=== PATIENT | male | born 1975 | race Caucasian/White ===

== ENCOUNTER → 2018-06-08 | Outpatient (CLI) | payer BC ==
--- NOTE | 2018-06-08 16:31 | REP ---
MAXILLOFACIAL CT WITHOUT CONTRAST: HISTORY: Chronic maxillary sinusitis. The patient is status-post partial left uncinectomy and left ethmoidectomy. Minimal mucosal thickening is present in the ethmoid and left maxillary sinuses. The remaining sinuses are clear. The right osteomeatal unit is patent. The middle and inferior nasal turbinates are partially paradoxical. There is minimal deviation of the nasal septum to the right. The cribriform plate, medial mcclelland of the orbits and optic canals are intact. The carotid canals form a segment of the posterolateral mcclelland of the sphenoid sinus. The sphenoid sinus septum inserts into the left internal carotid canal wall. A small soft tissue density is present in the left nasal passage lateral to and contiguous with the left middle nasal turbinate. This may represent a polyp. IMPRESSION:1. Postoperative change as described above. 2. Sinus mucosal thickening as described above. 3. There is a small soft tissue density in the left nasal passage that may represent a polyp. Electronically Signed by Loco Sanchez MD 06/08/2018 04:40 P
== END ==
LOC: M RAD 14:46
PROVIDERS: ATTEND Otolaryngology
DX: J32.0 Chronic maxillary sinusitis (principal); J34.9 Unspecified disorder of nose and nasal sinuses

== ENCOUNTER 2019-03-02 08:39 | Day surgery (SDC) | payer BC ==
[~2019-03-02] VITALS: Ht 193 cm; Wt 88.9 kg
[2019-03-02] MEDS ORDERED: PROPOFOL 200 MG/20 ML VIAL As Ordered ONE (09:59)
[2019-03-02] MEDS ORDERED: LIDOCAINE 2% INJ 100 MG/5 ML SDV (FOR ANES.) As Ordered ONE (09:59)
[2019-03-02] MEDS ORDERED: ROCURONIUM BROMIDE 50 MG/5 ML VIAL As Ordered ONE (09:59)
[2019-03-02] MEDS ORDERED: fentaNYL 250 MCG/5 ML INJECTION (J3010) As Ordered ONE (10:00)
[2019-03-02] MEDS ORDERED: MIDAZOLAM INJ 2 MG/2 ML VIAL (J2250) As Ordered ONE (10:00)
[2019-03-02] MEDS ORDERED: dexameTHASONE 4 MG/ML 1ML VIAL (J1100) As Ordered ONE (10:03)
[2019-03-02] MEDS ORDERED: METHYLENE BLUE 0.5% (5MG/ML) 10 ML AMP (PROVAYBLUE)(Q9968 PER 1MG) As Ordered ONE (10:04)
[2019-03-02] MEDS ORDERED: OXYMETAZOLINE NASAL SPRAY (AFRIN) As Ordered ONE (10:05)
[2019-03-02] MEDS ORDERED: LIDOCAINE W/EPINEPHRINE 1% 20ML VIAL As Ordered ONE (10:05)
[2019-03-02] MEDS ORDERED: GLYCOPYRROLATE INJ 0.2 MG/ML 2 ML VIAL As Ordered ONE (10:42)
[2019-03-02] MEDS ORDERED: ESMOLOL INJ 100MG/10ML VIAL As Ordered ONE (10:47)
[2019-03-02] MEDS ORDERED: LABETALOL HCL 100 MG/20 ML VIAL As Ordered ONE (11:01)
[2019-03-02] MEDS ORDERED: SUGAMMADEX SODIUM 500 MG/5 ML VIAL (BRIDION) As Ordered ONE (11:04)
[2019-03-02] MEDS ORDERED: ACETAMINOPHEN 1000MG 100ML IV BTL (OFIRMEV) (J0131 PER 10MG) As Ordered ONE (11:05)
[2019-03-02] MEDS ORDERED: ONDANSETRON 4MG/2ML VIAL (J2405) As Ordered ONE (11:05)
[2019-03-02] MEDS ORDERED: IBUPROFEN 600 MG TAB As Ordered ONE (14:17)
[2019-03-02] MEDS ORDERED: IBUPROFEN 600 MG TAB PO ONE (14:30)
[2019-03-02 14:55] VITALS: BP 147/98
--- NOTE | 2019-03-03 00:25 | RO ---
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 OPERATION PERFORMED: Coblation ablation of laryngeal papillomas with biopsies under micro suspension laryngoscopy. SURGEON: Drake Hernandez Jr., MD WINDOW SHADE CUTTER: ANESTHESIA: General via endotracheal tubes. PROCEDURE IN DETAIL: With the patient induced and intubated, prepped and draped in the usual fashion, the bed was turned 90 degrees. Then, initially the Hailee was placed, which was difficult to place in proper position. There were some epiglottic laryngeal surface papillomas that were coblated with the larger laryngeal Coblation wand with a setting of 7 Coblate and 3 coag. However, sufficient view of the larynx could not be obtained with this. Therefore, switch to Dedo scope was placed. The patient was then placed in micro suspension. There was blood from the endotracheal tube going through the laryngeal papillomas; this was suctioned. He had a fair amount of secretions. We asked the petrography teacher to give him Robinul, which he did. The patient also previously obtained 8 mg of Decadron. The patient then underwent placement of the Dedo scope such that attempts to identify the anterior commissure could be done. This could not be seen at all due to the significant anterior placement of the larynx plus the patient's papillomatosis. Initially we put him into suspension and could see there was tight fit, mainly of the papillomas on the patient's right side compared to the left, but on both sides. Once this was done, and he was placed in suspension, utilizing the Afrin pledgets, these were placed subglottically to protect the larynx. A true view of the true vocal cords was very difficult to see initially. Initially, a shave of the right posterior aspect was done superior to the false vocal cords, and this was done a little bit anteriorly on the left. This is when we could actually see the left true vocal cord. False vocal cord was very medialized and covering a good part of the left vocal cord. There were papillomas anterior and superiorly. Multiple biopsies of this were performed given that the patient was a smoker, but most of this was very consistent with a papilloma. Once this was done, attention then was drawn to identifying the left vocal cord more extensively. Again, utilizing the Coblator, larger micro laryngeal and with the suction on, this was used to Coblate anterior portion of the false vocal cord on the left side superiorly. And then once the level of the true vocal cords could be identified on one side, the larger supraglottic Coblation wand was used on the right side down to the level of the false vocal cords. Eventually, the anterior portion of the right true vocal cord could be seen. Coblation was done again with suctioning and hovering slightly away from the true vocal cords. However, there was significant hard tissue, compatible with scar from previous micro laryngeal surgeries from previous papillomas in the past. This was followed and shaved appropriately. The ventricle eventually could be seen. What initially thought was the vocal cords covered with the papilloma actually appeared to be more coming from the ventricle and false vocal cords. And of what could be seen of the true vocal cords, there was only slight involvement of the true vocal cords anteriorly, closer to the right side and the anterior commissure. When we were closer to the ventricle of the right laryngeal region, the smaller wand was used to get into the ventricle area and shave down. The pictures were done prior, as well as postoperatively. At this point, once this was completely removed, the either micro cup forceps or larger coblating device and the smaller coblating device with settings of primarily 7 and 3 and a very small 8 Coblate, vocal cord mucosa was intact. This was photo documented, and there was no damage or lesions done to the vocal cords. The patient then had Afrin-soaked pledgets placed and all bleeding had stopped. This was a very hard, difficult procedure because the patient was very anterior, and it was difficult to get full exposure and required the surgeon's left hand to constantly manipulate the larynx into position so that the Coblation could be performed. A 0-degree Campbell palmer was attached to the camera, demonstrating that both vocal cord mucosas were completely normal, and there was no scarring created on the anterior commissure. At this point, laryngotracheal anesthesia with 4% lidocaine was placed to prevent laryngospasms, and the patient tolerated this well. There were no problems. No complications. Estimated blood loss was 1 mL.
== END 2019-03-02 15:00 | disposition home or self-care (01) ==
LOC: M SDC 08:39
PROVIDERS: ATTEND Otolaryngology
DX: D14.1 Benign neoplasm of larynx (principal); F17.210 Nicotine dependence, cigarettes, uncomplicated; Z88.4 Allergy status to anesthetic agent
CPT/HCPCS: 31541; 88305; J0131; J1100; J2250; J2405; J3010; Q9968

== ENCOUNTER → 2020-06-27 | Outpatient (CLI) | payer BC ==
--- NOTE | 2020-06-27 12:35 | REP ---
INDICATION: ANKLE F/U FX COMPARISON: None. TECHNIQUE: AP, lateral, oblique views. FINDINGS: No acute fracture or dislocation. Skeletal structures and joint spaces are intact and normal. Ankle mortise appears stable. No subcutaneous emphysema or radiodense foreign body. IMPRESSION: Normal right ankle radiograph series. No acute fracture or dislocation. <Electronically signed by Ghassan Nye > 06/27/20 [id number]
--- NOTE | 2020-06-27 12:39 | REP ---
INDICATION: ANKLE PAIN. COMPARISON: None. TECHNIQUE: AP, lateral, oblique view of the right ankle FINDINGS: Oblique view demonstrates small corticated somewhat triangular bony densities inferolateral to the cuboid bone which should be correlated with physical examination. Findings may represent small normal accessory ossicles or possible fracture fragments of uncertain donor site. No obvious associated soft tissue swelling is appreciated. Remainder of the examination is age-appropriate. IMPRESSION: Questionable normal accessory ossicles versus small fracture fragments adjacent to the cuboid bone require further correlation. <Electronically signed by Ghassan Ney > 06/27/20 [id number]
--- NOTE | 2020-06-27 15:05 | REP ---
INDICATION: LEFT WRIST PAIN. COMPARISON: None. TECHNIQUE: AP and lateral views of the left wrist FINDINGS: There is minimal periarticular sclerosis along the radial surface with subtle radiocarpal joint space narrowing. Remainder of the examination is essentially age-appropriate. No evidence for acute or healed injury. IMPRESSION: Minimal degenerative changes at the radiocarpal joint line. <Electronically signed by Ghassan Nye > 06/27/20 [id number]
== END ==
LOC: M SOG 09:54
PROVIDERS: ATTEND Orthopaedic Surgery Sports Medicine
DX: G56.31 Lesion of radial nerve, right upper limb (principal); S82.54XD Nondisplaced fracture of medial malleolus of right tibia, subsequent encounter for closed fracture with routine healing; X58.XXXD Exposure to other specified factors, subsequent encounter

== ENCOUNTER → 2022-07-17 | Outpatient (CLI) | payer BC | LOC: M RAD 17:47 | PROVIDERS: ATTEND Otolaryngology | DX: J32.0 Chronic maxillary sinusitis (principal); J31.0 Chronic rhinitis ==

== ENCOUNTER → 2023-06-18 | Outpatient (CLI) | payer BC ==
[~2023-06-18] MED LIST: BIOFTAB PO; PRIL20TA2 PO; ROSU10TA6 PO
== END ==
LOC: M RAD 10:57
PROVIDERS: ATTEND Internal Medicine Medical Oncology
DX: D69.6 Thrombocytopenia, unspecified (principal); R94.5 Abnormal results of liver function studies; R16.1 Splenomegaly, not elsewhere classified; K76.0 Fatty (change of) liver, not elsewhere classified

== ENCOUNTER → 2024-09-01 | Outpatient (CLI) | payer BC ==
[~2024-09-01] MED LIST changes: -ROSU10TA6 PO; +ROSU10TA61 PO
== END ==
LOC: M EKG 15:11
PROVIDERS: ATTEND Registered Nurse
DX: R00.2 Palpitations (principal)